=== PATIENT | male | born 1970 | race Caucasian/White ===

== ENCOUNTER 2023-07-11 04:48 | Emergency (ER) | payer BC, SELFPAY ==
[2023-07-11 04:51] VITALS: BP 108/76
[2023-07-11 05:03] VITALS: BMI 31.6
--- NOTE | 2023-07-11 05:22 | ED.GENMED ---
History of Present Illness
<JUAN Ramachandran - Last Filed: 07/11/23 05:56>
General
Chief Complaint: Abdominal Pain
Source: patient
Exam Limitations: none
Time Seen by Provider: 07/11/23 05:13
Nursing documentation reviewed up to this point in time: agreed with
Travel History
Have you had any contact with someone who has COVID-19?: No
Do you have any symptoms of coronavirus? Fever > 100 degrees, chills, cough, shortness of breath, sore throat, loss of taste or smell, muscle aches, or headache?: No
History of Present Illness
History of Present Illness:
patient is a 52 y/o male with PMH of diverticulosis, IBS and renal stones presenting with abdominal pain x 2 days. Patient admits the pain is localized to his LLQ and radiates to the lower abdomen. Patient admits the pain is sharp and severe.
Patient admits nothing makes the pain better or worse. Patient admits to mild constipation but admits he has a history of chronic constipation. Patient admits to chills that started earlier today. Patient admits to decreased appetite since onset of
pain. Patient admits to mild bloating/distention. Patient says the bloating is localized to his lower abdomen. Patient denies N/V/D, blood in the stool, fever, CP, SOB, OLMEDO. Patient denies smoking or alcohol intake in the last 48 hours. Patient
denies any medication or dietary changes. Patient has a history of bowel resection, diverticula surgery, inguinal hernia repair, renal calculi stent placement, adhesion lysis for SBO.
Past History
<JUAN Ramachandran - Last Filed: 07/11/23 05:56>
Past History
ED Past Medical History: Other (Diverticulitis, kidney stones, SBO)
ED Past Surgical History: Bowel resection (Colon resection, surgery also due to scar tissue) and Orthopedic; Negative Appendectomy
Patient has exhibited threatening behavior?: No
Social History
Tobacco: Non-smoker
Alcohol: None
Drug: None
Personal:
Living: with family
Employment: Employed
Family History
Family History: Hypertension
Review of Systems
<JUAN Ramachandran - Last Filed: 07/11/23 05:56>
Review of Systems
Constitutional: Reports chills
Respiratory: Reports no symptoms
Cardiac: Reports no symptoms
ABD/GI: Reports abdominal pain (LLQ), constipated, anorexia and other (LLQ pain with mild radiation to RLQ )
: Reports no symptoms
Phy Exam
<JUAN Ramachandran - Last Filed: 07/11/23 05:56>
General Physical Exam
General Presentation: well appearing and no apparent distress
General Skin: warm and dry
General Habitus: normal
General Mental: alert
General Hydration: appears well hydrated
ENT Exam
ENT Exam: EOMI, pharynx normal, neck supple and normocephalic
Eye Exam
Eye Exam: PERRL, cornea clear and conjunctiva normal
Cardiovascular Exam
Cardiovascular Exam: regular rate/rhythm, no edema, no murmur and normal peripheral pulses
Pulmonary Exam
Pulmonary Exam: lungs clear, no respiratory distress, no rales, no crackles, no rhonchi, no stridor, no wheezing and no cough
Gastrointestinal Exam
Gastrointestinal Exam: normal bowel sounds, soft and tender (LLQ with radiation to RLQ )
Palpation: left lower quadrant: Moderate tenderness (sharp pain )
Abdominal Scars: inguinal and vertical midline
Auscultation of Abdomen: normal
Neurological Exam
Neurological Exam: alert, oriented x3, no motor deficits and speech normal
Musculoskeletal Exam
Musculoskeletal Exam: full ROM and no edema
Skin Exam
Skin Exam: normal color, warm/dry, no rash and no petechia
Psychiatric Exam
Psychiatric Exam: normal mood/affect
Course
<JUAN Ramachandran - Last Filed: 07/11/23 05:56>
Orders/Labs/Results
Orders:
Orders
07/11/23 05:39
Iohexol [Omnipaque] See Protocol PO NOW STA
07/11/23 05:40
CT Abd/pel W Iv And Oral Contr Urgent
Comment:
Reason For Exam: llq pain, bowel resection/tics
0.9% Sodium Chloride 1000 ml [Nss] 1,000 ml IV BOLUS
Ondansetron Injectable [Zofran] 4 mg IV NOW STA
07/11/23 05:41
HYDROmorphone [Dilaudid] 1 mg IV NOW STA
07/11/23 06:05
Complete Blood Count/With Diff Urgent
Comprehensive Metabolic Panel Urgent
07/11/23 08:35
Urinalysis Reflex To Culture Urgent
Date Specimen was Collected: 07/11/23
Time Specimen was Collected: 08:07
07/11/23 09:06
LevoFLOXacin [Levaquin] 500 mg PO NOW STA
MetroNIDAZOLE [Flagyl] 500 mg PO NOW STA
Abnormal Lab Results
07/11/23
06:05
WBC 14.8 H 10^3/uL
(4.8-10.8)
MPV 10.6 H fL
(7.4-10.4)
Abs Immat Gran (auto) 0.1 H 10^3/uL
(0-0.05)
Absolute Neuts (auto) 11.1 H 10^3/uL
(1.4-6.5)
Absolute Monos (auto) 1.4 H 10^3/uL
(0.1-0.6)
Lymphocytes % 13.3 L %
(20.5-51.1)
Monocytes % 9.6 H %
(1.7-9.3)
Glucose 103 H mg/dl
(70-99)
Total Bilirubin 1.6 H mg/dl
(0.2-1.3)
07/11/23 06:05
07/11/23 06:05
Vital Signs
Initial and Last Documented VS:
Initial Vital Signs
Temp Pulse Resp BP Pulse Ox
98 F 100 22 108/76 100
07/11/23 04:51 07/11/23 04:51 07/11/23 04:51 07/11/23 04:51 07/11/23 04:51
Last Documented Vital Signs
Temp Pulse Resp BP Pulse Ox
98 F 96 20 100/68 98
07/11/23 04:51 07/11/23 08:03 07/11/23 06:17 07/11/23 08:03 07/11/23 08:03
<Shahzad Caputo, - Last Filed: 07/11/23 06:06>
Orders/Labs/Results
Orders:
Orders
07/11/23 05:39
Iohexol [Omnipaque] See Protocol PO NOW STA
07/11/23 05:40
CT Abd/pel W Iv And Oral Contr Urgent
Comment:
Reason For Exam: llq pain, bowel resection/tics
0.9% Sodium Chloride 1000 ml [Nss] 1,000 ml IV BOLUS
Ondansetron Injectable [Zofran] 4 mg IV NOW STA
07/11/23 05:41
HYDROmorphone [Dilaudid] 1 mg IV NOW STA
07/11/23 06:05
Complete Blood Count/With Diff Urgent
Comprehensive Metabolic Panel Urgent
07/11/23 08:35
Urinalysis Reflex To Culture Urgent
Date Specimen was Collected: 07/11/23
Time Specimen was Collected: 08:07
07/11/23 09:06
LevoFLOXacin [Levaquin] 500 mg PO NOW STA
MetroNIDAZOLE [Flagyl] 500 mg PO NOW STA
Abnormal Lab Results
07/11/23
06:05
WBC 14.8 H 10^3/uL
(4.8-10.8)
MPV 10.6 H fL
(7.4-10.4)
Abs Immat Gran (auto) 0.1 H 10^3/uL
(0-0.05)
Absolute Neuts (auto) 11.1 H 10^3/uL
(1.4-6.5)
Absolute Monos (auto) 1.4 H 10^3/uL
(0.1-0.6)
Lymphocytes % 13.3 L %
(20.5-51.1)
Monocytes % 9.6 H %
(1.7-9.3)
Glucose 103 H mg/dl
(70-99)
Total Bilirubin 1.6 H mg/dl
(0.2-1.3)
07/11/23 06:05
07/11/23 06:05
Vital Signs
Initial and Last Documented VS:
Initial Vital Signs
Temp Pulse Resp BP Pulse Ox
98 F 100 22 108/76 100
07/11/23 04:51 07/11/23 04:51 07/11/23 04:51 07/11/23 04:51 07/11/23 04:51
Last Documented Vital Signs
Temp Pulse Resp BP Pulse Ox
98 F 96 20 100/68 98
07/11/23 04:51 07/11/23 08:03 07/11/23 06:17 07/11/23 08:03 07/11/23 08:03
<Alejandra Belcher MD - Last Filed: 07/11/23 09:12>
Orders/Labs/Results
Orders:
Orders
07/11/23 05:39
Iohexol [Omnipaque] See Protocol PO NOW STA
03/19/24 05:40
CT Abd/pel W Iv And Oral Contr Urgent
Comment:
Reason For Exam: llq pain, bowel resection/tics
0.9% Sodium Chloride 1000 ml [Nss] 1,000 ml IV BOLUS
Ondansetron Injectable [Zofran] 4 mg IV NOW STA
07/11/23 05:41
HYDROmorphone [Dilaudid] 1 mg IV NOW STA
07/11/23 06:05
Complete Blood Count/With Diff Urgent
Comprehensive Metabolic Panel Urgent
07/11/23 08:35
Urinalysis Reflex To Culture Urgent
Date Specimen was Collected: 07/11/23
Time Specimen was Collected: 08:07
07/11/23 09:06
LevoFLOXacin [Levaquin] 500 mg PO NOW STA
MetroNIDAZOLE [Flagyl] 500 mg PO NOW STA
Abnormal Lab Results
07/11/23
06:05
WBC 14.8 H 10^3/uL
(4.8-10.8)
MPV 10.6 H fL
(7.4-10.4)
Abs Immat Gran (auto) 0.1 H 10^3/uL
(0-0.05)
Absolute Neuts (auto) 11.1 H 10^3/uL
(1.4-6.5)
Absolute Monos (auto) 1.4 H 10^3/uL
(0.1-0.6)
Lymphocytes % 13.3 L %
(20.5-51.1)
Monocytes % 9.6 H %
(1.7-9.3)
Glucose 103 H mg/dl
(70-99)
Total Bilirubin 1.6 H mg/dl
(0.2-1.3)
07/11/23 06:05
07/11/23 06:05
Vital Signs
Initial and Last Documented VS:
Initial Vital Signs
Temp Pulse Resp BP Pulse Ox
98 F 100 22 108/76 100
07/11/23 04:51 07/11/23 04:51 07/11/23 04:51 07/11/23 04:51 07/11/23 04:51
Last Documented Vital Signs
Temp Pulse Resp BP Pulse Ox
98 F 96 20 100/68 98
07/11/23 04:51 07/11/23 08:03 07/11/23 06:17 07/11/23 08:03 07/11/23 08:03
<JUAN Ramachandran - Last Filed: 07/11/23 05:56>
MDM/Problems Addressed
Differential Diagnosis Includes:
diverticulitis
appendicitis
SBO
MDM/Problems Addressed:
abdominal pain
<JUAN Ramachandran - Last Filed: 07/11/23 05:56>
*Critical Care Note
Total Time (30-74mins, 75-104mins- exclusive of procedures): Not Applicable
<Alejandra Belcher MD - Last Filed: 07/11/23 09:12>
*Radiology
Radiology exam reviewed: radiology read reviewed
<Alejandra Belcher MD - Last Filed: 07/11/23 09:12>
Update Note
Update Note:
[address] shows acute diverticulitis without complication. CT report reviewed with the patient. Patient appears well nontoxic. Reports his pain is mild and tolerable. Patient happy to go home with oral antibiotics.
ED Attending Note
<JUAN Ramachandran - Last Filed: 07/11/23 05:56>
-
Portions of this chart may have been created with voice recognition software.� Occasional wrong word or��sound alike� substitutions may have occurred due to the inherent limitations of voice recognition software.
<Shahzad Caputo DO - Last Filed: 07/11/23 06:06>
ED Attending Note
Patient seen and examined by attending physician: Yes
I performed the substantive portion of visit, reviewed & personally made and approve the management plan that is documented in note by myself or GREG.: Yes
ED Attending Note:
Seen with student examined independently 52-year-old male history of renal stone diverticulitis status postresection with Dr. Almanzar [facility], afterward had adhesions and a bowel obstruction requiring operative intervention but no
resection so also had hernia surgery,
Patient states he usually can manage his symptoms with low residual diet sometimes Levaquin Flagyl but the symptoms are worse, reports the left lower abdomen,
Differential includes diverticulitis, renal colic, possibly obstruction,
Plan will be labs IV fluids antiemetics CAT scan
Discharge Plan
Departure
Patient Disposition: Home (Routine Discharge)
Date of Disposition: 07/11/23
Time of Disposition: 09:07
Patient with high blood pressure during this ER visit?: No
Condition: Good
Covid-19: Not Applicable
Discharge Problem:
Acute diverticulitis
Instructions: Diverticulitis (DC)
Prescriptions:
New
metronidazole 500 mg tablet
500 mg PO TID Qty: 29 0RF
levofloxacin 500 mg tablet
500 mg PO DAILY Qty: 9 0RF
No Action
alprazolam 0.5 MG tablet
0.5 mg PO PRN PRN (Reason: anxiety )
L.acidoph, paracasei,B. lactis 1 EACH capsule
1 ea PO DAILY
tamsulosin 0.4 MG capsule
0.4 mg PO DAILY Qty: 30 0RF
phenazopyridine 100 MG tablet
100 mg PO BID Qty: 30 0RF
tramadol 50 MG tablet
50 mg PO Q8HPRN PRN (Reason: pain) Qty: 25 0RF
nitrofurantoin monohyd/m-cryst 100 MG capsule
100 mg PO BID Qty: 10 0RF
sulfamethoxazole-trimethoprim [Bactrim DS] 800-160 mg tablet
1 tab PO BID Qty: 14 0RF
Referrals:
Ale Vigil MD [Family Provider] -
Interventions
Interventions:
*Risk Screen - Suicide Last Done: 07/11/23 04:51
*General Assessment Last Done: 07/11/23 05:03
*Neglect/Abuse Screening Last Done: 07/11/23 04:51
ED- Fall Risk Assessment Last Done: 07/11/23 05:03
*ED COVID-19 Vaccine History Last Done: 07/11/23 05:03
NQ-Eesawm-Refmibdwkn Assessment Last Done: 07/11/23 05:03
[2023-07-11] MEDS: NSS 1000 IV (06:02)
[2023-07-11] MEDS: ZOFRAN 4 MG IV (06:03)
[2023-07-11] MEDS: DILAUDID 1 MG IV (06:04)
[2023-07-11] MEDS: OMNIPAQUE 50 ML PO (06:04)
[2023-07-11 06:17] VITALS: BP 117/78
[2023-07-11 06:38] LABS: % Basophils 0.5 % (0-2); % Eosinophils 1.2 % (0-6); % Immature Granulocytes 0.5 % (0-0.5); % Lymphocytes 13.3 % (20.5-51.1); % Monocytes 9.6 % (1.7-9.3); % Neutrophils 74.9 % (42.2-75.2); Absolute Basophils 0.1 10^3/uL (0-0.2); Absolute Eosinophils 0.2 10^3/uL (0-0.7); Absolute Immature Granulocytes 0.1 10^3/uL (0-0.05); Absolute Monocytes 1.4 10^3/uL (0.1-0.6); Absolute Neutrophils 11.1 10^3/uL (1.4-6.5); Hematocrit 43.5 % (39.0-52.0); Hemoglobin 14.9 g/dL (13.0-18.0); Mean Corp Hgb Conc. 34.3 g/dL (33.0-37.0); Mean Corpuscular Hgb 28.2 pg (27.0-31.0); Mean Corpuscular Volume 82.4 fL (80.0-94.0); Mean Platelet Volume 10.6 fL (7.4-10.4); Nucleated Red Blood Cells % 0 % (-); Platelet Count 230 10^3/uL (130-400); Red Blood Cell Count 5.28 10^6/uL (4.70-6.10); Red Cell Dist. Width 12.9 % (11.5-14.5); White Blood Cell Count 14.8 10^3/uL (4.8-10.8)
[2023-07-11 06:52] LABS: ALT (SGPT) 20 U/L (0-50); AST (SGOT) 23 U/L (17-59); Albumin 4.2 g/dl (3.5-5.0); Alkaline Phosphatase 110 U/L (38-126); Blood Urea Nitrogen 17 mg/dl (9-20); Calcium 9.3 mg/dl (8.4-10.2); Carbon Dioxide 24 mmol/L (22-30); Chloride 103 mmol/L (98-107); Estimated Creatinine Clearance 81 ml/min; Glucose 103 mg/dl (70-99); Potassium 3.9 mmol/L (3.5-5.1); Sodium 136 mmol/L (135-145); Total Bilirubin 1.6 mg/dl (0.2-1.3); Total Protein 6.7 g/dl (6.3-8.2); eGFR > 60.00
[2023-07-11 08:03] VITALS: BP 100/68
[2023-07-11 09:11] LABS: Urine Albumin Negative (Neg - Trace); Urine Bilirubin Negative (Negative); Urine Character Clear (Clear); Urine Color Yellow; Urine Glucose Negative (Negative); Urine Ketone Negative (Negative); Urine Leukocyte Trace (Negative); Urine Nitrite Negative (Negative); Urine Occult Blood Negative (Negative); Urine Specific Gravity 1.015 (<1.030); Urine Urobilinogen Negative (Neg - 1+)
[2023-07-11] MEDS: LEVAQUIN 500 MG PO (09:15)
[2023-07-11] MEDS: FLAGYL 500 MG PO (09:15)
[2023-07-11 09:36] LABS: Urine Mucus Few
[2023-07-11 09:37] LABS: Urine Bacteria Few (Negative); Urine Red Blood Cell 0-2 /HPF (0-2); Urine White Cell 0-2 /HPF (0-5)
== END 2023-07-11 09:21 | disposition home or self-care (01) ==
LOC: EMR 04:48
PROVIDERS: EMERGENCY PHYSICIAN Emergency Medicine; FAMILY PHYSICIAN Family Medicine
DX: K57.92 Diverticulitis of intestine, part unspecified, without perforation or abscess without bleeding (principal); K58.9 Irritable bowel syndrome, unspecified; Z82.49 Family history of ischemic heart disease and other diseases of the circulatory system; Z87.442 Personal history of urinary calculi; Z90.49 Acquired absence of other specified parts of digestive tract
CPT/HCPCS: 99284; 96374; 96375; 96361; 74177; 80053; 81003; 81015; 85025; Q9967

== ENCOUNTER 2023-10-28 10:23 | Emergency (ER) | payer BC, SELFPAY ==
[2023-10-28 10:29] VITALS: BP 110/78
--- NOTE | 2023-10-28 11:01 | ED.GENMED ---
History of Present Illness
General
Chief Complaint: Flank Pain
Source: patient
Time Seen by Provider: 10/28/23 10:47
History of Present Illness
History of Present Illness:
53-year-old male presents with onset of intermittent left flank pain starting yesterday morning. The pain is more constant now towards the left lower abdomen. He denies any urinary symptoms no fever. He has history kidney stones and
diverticulitis. He required colon resection in the past for his diverticulitis. No other complaints at this time.
Past History
Past History
ED Past Medical History: Other (Diverticulitis, kidney stones, SBO)
ED Past Surgical History: Bowel resection (Colon resection, surgery also due to scar tissue) and Orthopedic; Negative Appendectomy
Patient has exhibited threatening behavior?: No
Social History
Tobacco: Non-smoker
Alcohol: None
Drug: None
Personal:
Living: with family
Employment: Employed
Family History
Family History: Hypertension
Phy Exam
Physical Exam
Physical Exam:
General: Well-appearing male no acute respiratory distress
ENT: Normocephalic atraumatic
Heart: Regular rate and rhythm no murmurs
Lungs: Clear no wheeze or rales
Abdomen: Soft tender to the left costovertebral angle and slightly to left lower quadrant no guarding rebound normal bowel sounds nondistended
Course
Orders/Labs/Results
Orders:
Orders
10/28/23 11:00
CT Abd/pel Without Iv Or Oral Urgent
Comment:
Reason For Exam: left flank pain
10/28/23 11:15
CMP [Comprehensive Metabolic Panel] Urgent
Complete Blood Count/With Diff Urgent
Urinalysis Reflex To Culture Urgent
Date Specimen was Collected: 10/28/23
Time Specimen was Collected: 11:10
Urine Microscopic Reflex Cult Urgent
10/28/23 11:55
Ondansetron Injectable [Zofran] 4 mg IV NOW STA
Abnormal Lab Results
10/28/23
11:15
WBC 17.1 H 10^3/uL
(4.8-10.8)
Abs Immat Gran (auto) 0.1 H 10^3/uL
(0-0.05)
Absolute Neuts (auto) 12.8 H 10^3/uL
(1.4-6.5)
Absolute Monos (auto) 1.9 H 10^3/uL
(0.1-0.6)
Lymphocytes % 13.0 L %
(20.5-51.1)
Monocytes % 10.9 H %
(1.7-9.3)
Glucose 102 H mg/dl
(70-99)
Total Bilirubin 1.7 H mg/dl
(0.2-1.3)
Leukocyte Esterase Rfl Trace A
(Negative)
Urine Bacteria (Reflex) Few A
(Negative)
10/28/23 11:15
10/28/23 11:15
Vital Signs
Initial and Last Documented VS:
Initial Vital Signs
Temp Pulse Resp BP Pulse Ox
98 F 96 16 110/78 98
10/28/23 10:29 10/28/23 10:29 10/28/23 10:29 10/28/23 10:29 10/28/23 10:29
Last Documented Vital Signs
Temp Pulse Resp BP Pulse Ox
99.7 F 96 22 95/76 93
10/28/23 12:09 10/28/23 10:29 10/28/23 12:10/28/23 12:10/28/23 12:15
MDM/Problems Addressed
Differential Diagnosis Includes:
Left flank pain and lower abdominal pain. Consider renal colic versus diverticulitis versus constipation
Urinalysis pending blood work pending. Will order CT scan without contrast.
Considered Toradol however patient declined
*Critical Care Note
Total Time (30-74mins, 75-104mins- exclusive of procedures): Not Applicable
Update Note
Update Note:
CT demonstrates acute diverticulitis without abscess or perforation. Patient remained stable. Most recent blood pressure 106/72. White blood cell count is elevated however he is healthy otherwise. Will trial Levaquin and Flagyl by mouth with
clear liquids at home. Stable for discharge
ED Attending Note
-
Portions of this chart may have been created with voice recognition software.� Occasional wrong word or��sound alike� substitutions may have occurred due to the inherent limitations of voice recognition software.
Discharge Plan
Departure
Patient Disposition: Home (Routine Discharge)
Date of Disposition: 10/28/23
Time of Disposition: 13:23
Patient with high blood pressure during this ER visit?: No
Discharge Problem:
Acute diverticulitis
Instructions: Diverticulitis
Prescriptions:
New
levofloxacin 500 mg tablet
500 mg PO DAILY 10 Days Qty: 10 0RF
metronidazole 500 mg tablet
500 mg PO TID Qty: 30 0RF
No Action
alprazolam 0.5 MG tablet
0.5 mg PO PRN PRN (Reason: anxiety )
L.acidoph, paracasei,B. lactis 1 EACH capsule
1 ea PO DAILY
tamsulosin 0.4 MG capsule
0.4 mg PO DAILY Qty: 30 0RF
phenazopyridine 100 MG tablet
100 mg PO BID Qty: 30 0RF
tramadol 50 MG tablet
50 mg PO Q8HPRN PRN (Reason: pain) Qty: 25 0RF
nitrofurantoin monohyd/m-cryst 100 MG capsule
100 mg PO BID Qty: 10 0RF
sulfamethoxazole-trimethoprim [Bactrim DS] 800-160 mg tablet
1 tab PO BID Qty: 14 0RF
metronidazole 500 mg tablet
500 mg PO TID Qty: 29 0RF
levofloxacin 500 mg tablet
500 mg PO DAILY Qty: 9 0RF
Referrals:
Ale Vigil MD [Family Provider] -
Activity Restrictions/Additional Instructions:
Drink plenty clear liquids. Use antibiotics as directed. Please return here for increased pain fever vomiting or other concerning findings
Interventions
Interventions:
*Risk Screen - Suicide Last Done: 10/28/23 10:29
*General Assessment Last Done: 10/28/23 10:29
*Neglect/Abuse Screening Last Done: 10/28/23 10:29
ED- Fall Risk Assessment Last Done: 10/28/23 11:11
*ED COVID-19 Vaccine History Last Done: 10/28/23 11:11
GQ-Nwsioz-Zfxjsbceou Assessment Last Done: 10/28/23 11:11
ED-Male Genitourinary Assessment Last Done: 10/28/23 11:11
Discharge Date and Time
Print Language: ECUADOREAN
[2023-10-28 11:11] VITALS: BMI 28.3
[2023-10-28 11:18] VITALS: BP 110/73
[2023-10-28 11:27] LABS: % Basophils 0.5 % (0-2); % Eosinophils 0.6 % (0-6); % Immature Granulocytes 0.4 % (0-0.5); % Monocytes 10.9 % (1.7-9.3); % Neutrophils 74.6 % (42.2-75.2); Absolute Basophils 0.1 10^3/uL (0-0.2); Absolute Eosinophils 0.1 10^3/uL (0-0.7); Absolute Immature Granulocytes 0.1 10^3/uL (0-0.05); Absolute Lymphocytes 2.2 10^3/uL (1.2-3.4); Absolute Monocytes 1.9 10^3/uL (0.1-0.6); Absolute Neutrophils 12.8 10^3/uL (1.4-6.5); Hematocrit 43.5 % (39.0-52.0); Hemoglobin 15.1 g/dL (13.0-18.0); Mean Corp Hgb Conc. 34.7 g/dL (33.0-37.0); Mean Corpuscular Hgb 28.2 pg (27.0-31.0); Mean Corpuscular Volume 81.3 fL (80.0-94.0); Mean Platelet Volume 10.3 fL (7.4-10.4); Nucleated Red Blood Cells % 0 % (-); Platelet Count 246 10^3/uL (130-400); Red Blood Cell Count 5.35 10^6/uL (4.70-6.10); Red Cell Dist. Width 12.8 % (11.5-14.5); Urine Albumin Negative (Neg - Trace); Urine Bilirubin Negative (Negative); Urine Character Clear (Clear); Urine Color Yellow; Urine Glucose Negative (Negative); Urine Ketone Negative (Negative); Urine Leukocyte Trace (Negative); Urine Nitrite Negative (Negative); Urine Occult Blood Negative (Negative); Urine Specific Gravity 1.005 (<1.030); Urine Urobilinogen Negative (Neg - 1+); White Blood Cell Count 17.1 10^3/uL (4.8-10.8)
[2023-10-28 11:40] LABS: ALT (SGPT) 18 U/L (0-50); AST (SGOT) 25 U/L (17-59); Albumin 4.4 g/dl (3.5-5.0); Alkaline Phosphatase 98 U/L (38-126); Blood Urea Nitrogen 12 mg/dl (9-20); Calcium 9.5 mg/dl (8.4-10.2); Carbon Dioxide 25 mmol/L (22-30); Chloride 103 mmol/L (98-107); Estimated Creatinine Clearance 69 ml/min; Glucose 102 mg/dl (70-99); Sodium 135 mmol/L (135-145); Total Bilirubin 1.7 mg/dl (0.2-1.3); Total Protein 6.8 g/dl (6.3-8.2); eGFR > 60.00
[2023-10-28 11:46] LABS: Urine Bacteria Few (Negative); Urine Red Blood Cell 0-2 /HPF (0-2); Urine White Cell 0-2 /HPF (0-5)
[2023-10-28] MEDS: ZOFRAN 4 MG IV (12:06)
[2023-10-28 12:09] VITALS: BP 95/76
[2023-10-28 13:00] VITALS: BP 106/72
== END 2023-10-28 13:50 | disposition home or self-care (01) ==
LOC: EMR 10:23
PROVIDERS: Physician Assistant; EMERGENCY PHYSICIAN Student in an Organized Health Care Education/Training Program; FAMILY PHYSICIAN Family Medicine
DX: K57.92 Diverticulitis of intestine, part unspecified, without perforation or abscess without bleeding (principal); Z82.49 Family history of ischemic heart disease and other diseases of the circulatory system; Z87.442 Personal history of urinary calculi; Z90.49 Acquired absence of other specified parts of digestive tract
CPT/HCPCS: 99284; 74176; 80053; 81003; 81015; 85025; 99285

== ENCOUNTER 2024-07-01 00:38 | Emergency (ER) | payer OTHER, SELFPAY ==
[2024-07-01 00:39] VITALS: BP 110/88
[2024-07-01] MEDS: TORADOL 30 MG IV (01:42)
[2024-07-01 01:43] VITALS: BMI 25.3
[2024-07-01 01:46] VITALS: BP 114/78
[2024-07-01 02:00] VITALS: BP 120/85
[2024-07-01 02:03] LABS: % Basophils 0.3 % (0-2); % Eosinophils 1.9 % (0-6); % Immature Granulocytes 0.3 % (0-0.5); % Monocytes 4.5 % (1.7-9.3); Absolute Eosinophils 0.2 10^3/uL (0-0.7); Absolute Lymphocytes 0.8 10^3/uL (1.2-3.4); Absolute Monocytes 0.5 10^3/uL (0.1-0.6); Absolute Neutrophils 10.2 10^3/uL (1.4-6.5); Hematocrit 42.7 % (39.0-52.0); Hemoglobin 14.6 g/dL (13.0-18.0); Mean Corp Hgb Conc. 34.2 g/dL (33.0-37.0); Mean Corpuscular Hgb 28.3 pg (27.0-31.0); Mean Corpuscular Volume 82.8 fL (80.0-94.0); Mean Platelet Volume 10.2 fL (7.4-10.4); Nucleated Red Blood Cells % 0 % (-); Platelet Count 242 10^3/uL (130-400); Red Blood Cell Count 5.16 10^6/uL (4.70-6.10); Red Cell Dist. Width 12.6 % (11.5-14.5); White Blood Cell Count 11.9 10^3/uL (4.8-10.8)
[2024-07-01 02:13] LABS: ALT (SGPT) 19 U/L (0-50); AST (SGOT) 25 U/L (17-59); Albumin 3.8 g/dl (3.5-5.0); Alkaline Phosphatase 84 U/L (38-126); Blood Urea Nitrogen 21 mg/dl (9-20); Calcium 9.4 mg/dl (8.4-10.2); Carbon Dioxide 28 mmol/L (22-30); Chloride 104 mmol/L (98-107); Estimated Creatinine Clearance 76 ml/min; Glucose 108 mg/dl (70-99); Lipase 65 U/L (23-300); Potassium 3.9 mmol/L (3.5-5.1); Sodium 138 mmol/L (135-145); Total Bilirubin 0.8 mg/dl (0.2-1.3); Total Protein 6.1 g/dl (6.3-8.2); eGFR > 60.00
--- NOTE | 2024-07-01 02:14 | ED.GENMED ---
History of Present Illness
General
Chief Complaint: Abdominal Pain
Source: patient
Time Seen by Provider: 07/01/24 01:21
History of Present Illness
History of Present Illness:
53-year-old male with past medical history of diverticulitis, IBS, prostatitis, anxiety presenting to the emergency department for evaluation of generalized abdominal pain that started around 7 PM, gradual in onset described to be as if he had a
band around his abdomen, attempted to go to sleep but woke up with worsening pain prompting him to come to the ER. Patient states at the end of April he completed a course of antibiotics for diverticulitis. States does feel somewhat similar but
difficult to say. Denies any other symptoms including fevers, chills, rigors, nausea, vomiting, urinary symptoms, chest pain or shortness of breath or any other concerns.
Past History
Past History
ED Past Medical History: Other (Diverticulitis, kidney stones, SBO)
ED Past Surgical History: Bowel resection (Colon resection, surgery also due to scar tissue), Orthopedic, Urological and Other; Negative Appendectomy
Patient has exhibited threatening behavior?: No
Social History
Tobacco: Non-smoker
Alcohol: None
Drug: None
Personal:
Living: with family
Employment: Employed
Family History
Family History: Hypertension
Review of Systems
Review of Systems
All Other Systems: ROS reviewed and negative except as documented in HPI and ROS
Phy Exam
Physical Exam
Physical Exam:
GENERAL: Alert , in no apparent distress
EYE: clear conjunctiva b/l
HEAD: NCAT
ENT: mmm.
CARDIAC: Regular rate and rhythm .
LUNGS: Clear breath sounds bilaterally, no acute respiratory distress, no wheezes/rales/rhonchi
ABDOMEN: Soft and nondistended, normoactive bowel sounds, generally tender but no focal tenderness, no r/g, no cvat
NEUROLOGICAL: Alert and oriented
SKIN: Warm and dry, skin intact.
MUSCULOSKELETAL: No edema, well perfused.
PSYCH: Normal and appropriate interaction.
Scores
Heart Failure Risk
Heart Failure Risk Score: Not Applicable
Heart Score for Chest Pain Patients
STEMI patient?: Not applicable
Withdrawal Assessment of Alcohol
Withdrawal Assessment Completed?: Not applicable
Course
Orders/Labs/Results
Orders:
Orders
07/01/24 01:21
Electrocardiogram (*1) Urgent
Reason for Study: Abdominal Pain
EKG- Treatment ONCE
07/01/24 01:31
CT Abd/pelvis W Iv Cont Urgent
Comment:
Reason For Exam: generalized abd pain, hx divertic
Ketorolac [Toradol] 30 mg IV NOW STA
07/01/24 01:37
Complete Blood Count/With Diff Urgent
Comprehensive Metabolic Panel Urgent
Lipase Urgent
Troponin I Urgent
Abnormal Lab Results
07/01/24
01:37
WBC 11.9 H 10^3/uL
(4.8-10.8)
Absolute Neuts (auto) 10.2 H 10^3/uL
(1.4-6.5)
Absolute Lymphs (auto) 0.8 L 10^3/uL
(1.2-3.4)
Neutrophils % 86.0 H %
(42.2-75.2)
Lymphocytes % 7.0 L %
(20.5-51.1)
BUN 21 H mg/dl
(9-20)
Glucose 108 H mg/dl
(70-99)
Total Protein 6.1 L g/dl
(6.3-8.2)
07/01/24 01:37
07/01/24 01:37
Vital Signs
Initial and Last Documented VS:
Initial Vital Signs
Temp Pulse Resp BP Pulse Ox
97.8 F 90 24 110/88 100
07/01/24 00:39 07/01/24 00:39 07/01/24 00:39 07/01/24 00:39 07/01/24 00:39
Last Documented Vital Signs
Temp Pulse Resp BP Pulse Ox
97.8 F 78 17 120/85 96
07/01/24 00:39 07/01/24 02:30 07/01/24 02:30 07/01/24 02:00 07/01/24 02:30
MDM/Problems Addressed
Differential Diagnosis Includes:
GERD/gastritis, diverticulitis, colitis, IBS flare, appendicitis, atypical ACS presentation
MDM/Problems Addressed:
53-year-old male presenting to the emergency department for evaluation of generalized abdominal discomfort described to be as if he had a band closing around his abdomen. Extensive history of diverticulitis noting that he will often get flareups
every 5 months. Follows with GI at an outside facility. Recently completed a course of antibiotics for diverticulitis in April. Overall patient is fairly well-appearing, hemodynamically stable and in no acute distress. He states in the past he
has had relief with Toradol and is requesting this for pain. Will check labs, urine, EKG and troponin, CT imaging. Disposition pending.
*Radiology
Radiology exam reviewed: radiology read reviewed
*Critical Care Note
Total Time (30-74mins, 75-104mins- exclusive of procedures): Not Applicable
Patient Management
Escalation/DeEscalation of care consider admission/obs:
Patient CT scan shows mild enteritis. He notes significant relief with Toradol. No evidence for acute surgical abdomen. Patient does feel comfortable being discharged home. Advised bland diet for the next 1 to 2 days. Return precautions
discussed. Stable for discharge home.
ED Attending Note
-
Portions of this chart may have been created with voice recognition software.� Occasional wrong word or��sound alike� substitutions may have occurred due to the inherent limitations of voice recognition software.
Discharge Plan
Departure
Patient Disposition: Home (Routine Discharge)
Date of Disposition: 07/01/24
Time of Disposition: 03:12
Patient with high blood pressure during this ER visit?: No
Discharge Problem:
Abdominal pain
Instructions: Abdominal Pain
Prescriptions:
No Action
alprazolam 0.5 MG tablet
0.5 mg PO PRN PRN (Reason: anxiety )
L.acidoph,paracasei,B.animalis 1 EACH capsule
1 ea PO DAILY
tamsulosin 0.4 MG capsule
0.4 mg PO DAILY Qty: 30 0RF
phenazopyridine 100 MG tablet
100 mg PO BID Qty: 30 0RF
tramadol 50 MG tablet
50 mg PO Q8HPRN PRN (Reason: pain) Qty: 25 0RF
nitrofurantoin monohyd/m-cryst 100 MG capsule
100 mg PO BID Qty: 10 0RF
sulfamethoxazole-trimethoprim [Bactrim DS] 800-160 mg tablet
1 tab PO BID Qty: 14 0RF
metronidazole 500 mg tablet
500 mg PO TID Qty: 29 0RF
levofloxacin 500 mg tablet
500 mg PO DAILY Qty: 9 0RF
levofloxacin 500 mg tablet
500 mg PO DAILY 10 Days Qty: 10 0RF
metronidazole 500 mg tablet
500 mg PO TID Qty: 30 0RF
Interventions
Interventions:
*Risk Screen - Suicide Last Done: 07/01/24 00:39
*General Assessment Last Done: 07/01/24 01:43
*Neglect/Abuse Screening Last Done: 07/01/24 00:39
*ED- Fall Risk Assessment Last Done: 07/01/24 01:43
*ED COVID-19 Vaccine History Last Done: 07/01/24 01:43
*Nursing Disposition Last Done: 07/01/24 03:36
BY-Piymgh-Juegzdkald Assessment Last Done: 07/01/24 02:03
Discharge Date and Time
Discharge Date/Time: 07/01/24 03:37
Print Language: KOSOVAN
[2024-07-01 02:25] LABS: Troponin I < 0.012 ng/ml
== END 2024-07-01 03:37 | disposition home or self-care (01) ==
LOC: EMR 00:38
PROVIDERS: Physician Assistant Medical; EMERGENCY PHYSICIAN Emergency Medicine; FAMILY PHYSICIAN Family Medicine
DX: K52.9 Noninfective gastroenteritis and colitis, unspecified (principal); Z87.442 Personal history of urinary calculi
CPT/HCPCS: 99284; 96374; 74177; 80053; 83690; 84484; 85025; 93005; Q9967